=== PATIENT | male | born 1955 | race Caucasian/White ===

== ENCOUNTER 2019-03-09 09:34 | Day surgery (SDC) | payer OTHER ==
[2019-03-03 14:46] LABS: BASOPHILS % (AUTO) 0.8 % (0.0-2.0); HEMATOCRIT 45.7 % (42.0-52.0); LYMPHOCYTES % (AUTO) 26.6 % (20.0-45.0); MEAN CORPUSCULAR VOLUME 91 FL (80-99); MONOCYTES % (AUTO) 9.2 % (1.0-10.0); NEUTROPHILS % (AUTO) 61.3 % (45.0-75.0); PLATELET COUNT 346 K/UL (150-450); RED BLOOD COUNT 5.04 M/UL (4.70-6.10); RED CELL DISTRIBUTION WIDTH 10.6 % (11.6-14.8); WHITE BLOOD COUNT 5.2 K/UL (4.8-10.8)
[2019-03-03 14:53] LABS: APPEARANCE,URINE CLEAR; BILIRUBIN, URINE 2+ (NEGATIVE); GLUCOSE, URINE (UA) NEGATIVE (NEGATIVE); KETONES,URINE NEGATIVE (NEGATIVE); LEUKOCYTE ESTERASE ,URINE NEGATIVE (NEGATIVE); NITRITE,URINE NEGATIVE (NEGATIVE); PH,URINE 6.5 (4.5-8.0); PROTEIN,URINE NEGATIVE (NEGATIVE); UROBILINOGEN,URINE NORMAL MG/DL (0.0-1.0)
[2019-03-03 15:05] LABS: COLOR,URINE YELLOW
[2019-03-03 15:08] LABS: INR 0.9 (0.9-1.1)
[2019-03-03 15:21] LABS: ALANINE AMINOTRANSFERASE 38 U/L (12-78); ALBUMIN 4.8 G/DL (3.4-5.0); ALBUMIN/GLOBULIN RATIO 1.4 (1.0-2.7); ALKALINE PHOSPHATASE 63 U/L (46-116); ANION GAP 9 mmol/L (5-15); ASPARTATE AMINO TRANSFERASE 21 U/L (15-37); BILIRUBIN,TOTAL 0.6 MG/DL (0.2-1.0); BLOOD UREA NITROGEN 19 mg/dL (7-18); CALCIUM 9.4 MG/DL (8.5-10.1); CARBON DIOXIDE 30 MMOL/L (21-32); CHLORIDE 102 MMOL/L (98-107); CREATININE 1.1 MG/DL (0.55-1.30); PHOSPHORUS 3.8 MG/DL (2.5-4.9); POTASSIUM 3.7 MMOL/L (3.5-5.1); SODIUM 141 MMOL/L (136-145)
--- NOTE | 2019-03-03 15:56 | Diagnostic Imaging Report ---
Indication: Cough Technique: 2 views of the chest Comparison: None Findings: Lungs and pleural spaces are clear. The heart size is normal. There is a left shoulder prosthesis Impression: No acute process
[2019-03-09] VITALS (8 sets, daily range): BP systolic 137–174; BP diastolic 73–107
[~2019-03-09] VITALS: Ht 167.6 cm; Wt 77.1 kg
--- NOTE | 2019-03-09 07:07 | Pre-Procedure Note/Attestation ---
Pre-Procedure Note/Attestation Complete Prior to Procedure Planned Procedure: right Procedure Narrative: right shoulder scope, sad, mini sindhu, debridement vs repair of RTC Indications for Procedure Pre-Operative Diagnosis: rt shoulder rtc tear Attestation I attest that I discussed the nature of the procedure; its benefits; risks and complications; and alternatives (and the risks and benefits of such alternatives ), prior to the procedure, with the patient (or the patient's legal senior outside sales representative). I attest that, if there was a reasonable possibility of needing a blood transfusion, the patient (or the patient's legal senior outside sales representative) was given the [place] Department [employer] [facility] standardized written summary, pursuant to the [employer] Blood Safety Act ([place] Health and Safety Code # 1645, as amended). I attest that I re-evaluated the patient just prior to the surgery and that there has been no change in the patient's H&P, except as documented below: none Jordan Gonzalez MD Mar 09, 2019 07:07
--- NOTE | 2019-03-09 08:26 | Anethesia Preoperative Eval ---
Anesthesia Pre-op PMH/ROS General Date of Evaluation: Mar 09, 2019 Time of Evaluation: 10:36 Anesthesiologist: Maria Isabel ASA Score: ASA 3 Mallampati Score Class I : Soft palate, uvula, fauces, pillars visible Class II: Soft palate, uvula, fauces visible Class III: Soft palate, base of uvula visible Class IV: Only hard plate visible Mallampati Classification: Class II Surgeon: Carlos Diagnosis: R Shoulder Pain Surgical Procedure: R Shoulder Arthroscopy, RCR Anesthesia History: none Family History: no anesthesia problems Allergies: Coded Allergies: MORPHINE (Verified Allergy, Severe, headache, n/v, rash, dizziness, ) Medications: see eMAR Patient NPO?: Yes Past Medical History Cardiovascular: Reports: HTN, other - HL Gastrointestinal/Genitourinary: Reports: GERD Hematology/Immune: Reports: other - Skin Cancers PSxH Narrative: Varicocele SX, L THR, T TSR Anesthesia Pre-op Phys. Exam Physician Exam Vital Signs Date Time Temp Pulse Resp B/P (MAP) Pulse Ox O2 Delivery O2 Flow Rate FiO2 03/09/19 10:21 97.5 47 18 139/73 99 Room Air Constitutional: NAD Neurologic: CN 2-12 intact Cardiovascular: RRR Respiratory: CTA Gastrointestinal: S/NT/ND Airway Exam Mallampati Score: Class II MO: full ROM: full Teeth: intact Anesthesia Pre-op A/P Risk Assessment & Plan Assessment: ASA 3 Plan: GA, SED, Supraclavicular Block Status Change Before Surgery: No Pre-Antibiotics Dru Grams Ancef IV Given Within 1 Hr of Incision: Yes Time Given: 11:01 Linwood Nicolas MD Mar 09, 2019 08:26
[~2019-03-09 09:34] MED LIST: Atropine Sulfate 0.4mg/ml inj IVP PRN; CRESTOR10 M2 ORAL; Dexamethasone 4mg/ml vial ONE; DiphenhydrAMINE 50mg/ml Inj IVP PRN; HYDROCHLOROTH12.5 M2 ORAL; Ketorolac 30mg Inj IV PRN; LORazepam Inj 2mg/ml 1ml IV PRN; LR 1000ml 1,000 ML IVLG SCH; Labetalol 5mg/ml 20ml vial IV PRN; Lidocaine 1% MPF 10mg/ml 5ml ONE; Meperidine 50mg/ml Inj(FOR RIGORS ONLY) IVP PRN; Metoclopramide 10mg/2ml Inj IVP PRN; Midazolam 2mg/2ml Inj IVP PRN; OMEPRAZOLE40 M1 ORAL; Propofol 200mg/20ml IV ONE; Ropivacaine 5mg/ml Vial 30ml INJ ONE; Sodium Chloride 10ml vial INJ ONE; ceFAZolin 1gm IVPB IVPB ONE; celeBREX 200mg Cap **SURGERY PATIENTS ONLY ORAL ONE; fentaNYL 100 mcg/2 mL IV PRN; oxyCONTIN 20mg tab ORAL ONE
[2019-03-09] MEDS ORDERED: NS Irrig 4000ml IRRIG ONE ×2 (10:30→11:46)
[2019-03-09] MEDS ORDERED: LR 1000ml ONE (10:30)
[2019-03-09] MEDS ORDERED: celeBREX 200mg Cap **SURGERY PATIENTS ONLY ORAL ONE (10:33)
[2019-03-09] MEDS ORDERED: oxyCONTIN 20mg tab ORAL ONE (10:33)
[2019-03-09] MEDS ORDERED: HYDROcodone/Acetamin 5/325 tab ORAL PRN (11:15)
[2019-03-09] MEDS ORDERED: Tylenol #3 tab (300mg/30mg) ORAL PRN (11:15)
--- NOTE | 2019-03-09 11:34 | Immediate Post-Op Evaluation ---
Immediate Post-Op Evalulation Immediate Post-Op Evalulation Procedure: R Shoulder Arthroscopy Date of Evaluation: Mar 09, 2019 Time of Evaluation: 12:30 IV Fluids: 600 LR Blood Products: 0 Estimated Blood Loss: 15 Urinary Output: 0 Blood Pressure Systolic: 184 Blood Pressure Diastolic: 103 Pulse Rate: 87 Respiratory Rate: 16 O2 Sat by Pulse Oximetry: 98 Temperature (Fahrenheit): 97.1 Pain Score (1-10): 0 Nausea: No Vomiting: No Complications 0 Patient Status: awake, reacts, patent, none Hydration Status: adequate Dru grams Ancef IV Given Within 1 Hr of Incision: Yes Time Given: 11:01 Linwood Nicolas MD Mar 09, 2019 11:34
--- NOTE | 2019-03-09 11:35 | 48 Hour Post Anesthesia Eval ---
Post Anesthesia Evaluation Procedure: R Shoulder Arthroscopy Date of Evaluation: Mar 09, 2019 Time of Evaluation: 14:43 Blood Pressure Systolic: 162 0: 81 Pulse Rate: 62 Respiratory Rate: 18 Temperature (Fahrenheit): 98.2 O2 Sat by Pulse Oximetry: 99 Airway: patent Nausea: No Vomiting: No Pain Intensity: 1 Hydration Status: adequate Cardiopulmonary Status: Stable Mental Status/LOC: patient returned to baseline Follow-up Care/Observations: 0 Post-Anesthesia Complications: 0 Follow-up care needed: ready to discharge Linwood Nicolas MD Mar 09, 2019 11:35
[2019-03-09] MEDS ORDERED: ETODOLAC500 M1 PO (11:57)
[2019-03-09] MEDS ORDERED: DONEPEZIL HCL10 M2 ORAL (11:57)
[2019-03-09] MEDS ORDERED: GABAPENTIN600 MG ORAL (11:59)
[2019-03-09] MEDS ORDERED: CYCLOBENZAPRINE10 MG ORAL (12:00)
--- NOTE | 2019-03-09 12:25 | Brief Operative Note ---
Immediate Post Operative Note Operative Note Chief Complaint: right shoulder pain Pre-op Diagnosis: right shoulder impingement Procedure: rt shoulder scope, sad, richard sindhu Post-op Diagnosis: same as pre-op Findings: consistent w/pre-op dx studies Surgeon: md alicia Oil Spraying Machine Operator: osmin peter Anesthesiologist: md gemma Anesthesia: general Specimen: none Complications: none Condition: stable Fluids: ns Estimated Blood Loss: minimal Drains: none Implant(s) used?: No Dipika Peter Mar 09, 2019 12:25
[2019-03-09] MEDS ORDERED: D5 1/2NS 1,000 ML IV SCH (16:31)
[2019-03-09] MEDS ORDERED: HYDROmorphone 1mg/ml Carpuject SUBQ PRN (16:31)
--- NOTE | 2019-03-09 17:15 | Operative Note - Dictated ---
DATE OF OPERATION: 03/09/2019 PREOPERATIVE DIAGNOSES: 1. Right shoulder impingement. 2. Right shoulder partial-thickness tear rotator cuff. 3. 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 POSTOPERATIVE DIAGNOSES: 1. Right shoulder impingement and bursitis. 2. Right shoulder articular sided rotator cuff tear involving 10% of the rotator cuff. 3. 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 4. 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 5. Anterior and posterior degenerative labral tearing without detachment from glenoid. PROCEDURE: 1. Right shoulder arthroscopy and extensive intra-articular shaving. 2. Right shoulder glenohumeral chondroplasty. 3. Right shoulder debridement of the degenerative anterior posterior labral tearing. 4. Right shoulder subacromial bursoscopy, bursectomy, and subacromial decompression. 5. Right shoulder mini-Noemi procedure (resection of inferior 30% distended clavicle for coplaning). 6. Right shoulder arthroscopic debridement of the articular sided rotator cuff tear involving 20% of rotator cuff. SURGEON: Jordan Gonzalez M.D. BRUSH STAINER: Dipika Merchant PA-C. Chef [employer] was present during the actual operative portion of the case and was important and essential part of the operation. During the operation, the behavioral modification assistant held and operated the arthroscopic camera for visualization, assisted by manipulating the arm to help with visualization, and helped with essential parts of the repair process as necessary such as operating surgical instruments under surgeon supervision, suture management, and wound closures. ANESTHESIOLOGIST: Linwood Nicolas M.D. ANESTHESIA: General LMA anesthesia combined with interscalene block. ESTIMATED BLOOD LOSS: Minimal. COMPLICATIONS: None. SURGICAL INDICATION: Patient is a 63-year old male who sustained the above injury to his shoulder. The patient was treated non-operative initially, but this did not alleviate the patients symptoms. Therefore, after discussing all non-surgical and surgical options, and discussing all foreseeable risk and benefits of surgery, the patient opted for surgical treatment as described above. PATIENT POSITIONING: Patient was brought to the operating room table and was placed on the operating room table. All pressure points were well padded. General anesthesia was induced and patient was then placed in the lateral decubitus position. All pressure points were well padded again and an axillary roll was placed. Patient shoulder was then prepped and draped in the usual sterile fashion. Time out was performed and the appropriate preoperative antibiotic was given by the anesthesiologist. EXAMINATION OF SHOULDER UNDER ANESTHESIA: The shoulder was examined under anesthesia with all muscles well relaxed. The shoulder was forward flexed, abducted and was placed through full range of external and internal rotation. The anterior, posterior, and inferior stability of the shoulder was checked. The exam revealed no evidence of adhesive capsulitis and no evidence of instability. PORTAL PLACEMENT: The posterior portal was established 2 cm inferior and 1 cm medial to the edge of the posterior acromion. 1 cm skin incision was made using an eleven blade and using the blunt obturator, the cannula was gently placed through the capsule. The midglenoid portal was established just lateral to the coracoid process under direct visualization. Direction of the cannula was first established using a spinal needle, and subsequently, the cannula was placed through the capsule with a blunt obturator. DIAGNOSTIC ARTHROSCOPY: The biceps tendon was probed and pulled through the joint for visualization. It appeared normal. The biceps anchor was palpated with a probe and was visualized. There was some degenerative labral tearing superiorly, anteriorly and posteriorly. The posterior labrum and axillary recess was visualized. There was some degenerative labral tearing, but there were no loose fragments. There was diffuse glenoid chondral damage anteriorly, posteriorly and inferiorly involving grade 3 and grade 4 chondromalacia. There was some unstable chondral flaps. The articular surface of the rotator cuff was visualized and probed next. There was a 10% to 20% articular sided rotator cuff tear, but there was no full-thickness tear. The Humeral head articular surface was then visualized. There was diffuse chondral damage on the humeral head anteriorly, posteriorly, and inferiorly. Next the anterior labrum, middle gleno-humeral ligament, subscapularis tendon, and the anterior inferior gleno-humeral ligament were evaluated. There were some degenerative tears of the anterior labrum, however, the subscapularis and anterior, inferior glenohumeral ligaments were intact. At this point, the scope was moved to the midglenoid portal and the posterior structures including the posterior labrum, posterior capsule and posterior cuff were visualized. Again, there were some degenerative tears of the posterior labrum without detachment. The subscapularis recess was devoid of any loose bodies and the anterior capsule was well attached to the humeral neck. The middle and anterior inferior glenohumeral ligament was visualized. These structures were completely normal. OPERATIVE DEBRIDEMENTS AND REPAIR: Care was given to all partial thickness tears and frayed structures in the shoulder joint. The frayed rotator cuff and labrum was debrided using a shaver initially through the anterior portal and subsequently through the posterior portal to complete the debridement. This allowed for smooth debridement of all affected structures and all loose fragments were removed. DIAGNOSTIC BURSOSCOPY AND SUBACROMIAL DECOMPRESSION: The subacromion bursa was entered from the posterior portal. The anterior portal was established under the CA ligament using a switching stick. Subacromial arthroscopy was initiated. There was extensive bursitis and thickened and inflamed bursa tissue present. The CA ligament appeared to be scuffed and frayed. The shaver was placed through the anterior cannula and debridement of the hypertrophic bursa tissue was accomplished. Once visualization was adequate, a lateral portal was established using a blunt trochar in the mid portion of the acromion bone in the anterior-posterior direction and approximately 2 cm lateral to the lateral edge of the acromion. Using combination of shaver and electrocautery the CA ligament was released from the undersurface of the acromion and a complete bursectomy was accomplished. At this point, a subacromial decompression was performed using a tj initially taking off 5-8 mm of the anterolateral edge of the acromion from the lateral portal and viewing from the posterior portal. Then the lateral border of the undersurface of the acromion was decompressed to the same dept as the anterolateral edge. A posterior trough was then created in the acromion in line with the posterior edge of the clavicle. At this point, the scope was placed in the lateral portal and the subacromial decompression was performed from the posterior portal decompressing the undersurface of the acromion to dept of 5-8 mm. The decompression was performed anterior to the previously marked trough all the way medially to the level of the AC joint. At all times, care was given not to take off too much bone in order to avoid risk of fracture of the acromion. An excellent subacromial decompression was performed in this fashion. At this point, the bursal side of the rotator cuff was examined. All the bursa over the rotator cuff was removed and the rotator cuff was examined with a probe. The arm was placed into external rotation, neutral, and then internal rotation and there was no evidence of tear of the rotator cuff. The scope was then placed in the posterior portal and the subacromial decompression was rechecked to assure there is no area of bone spur that would be still impinging onto the rotator cuff. EVALUATION OF DISTAL CLAVICLE AND DISTAL CLAVICLE RESECTION: Care was given to the distal end of the clavicle. Using electrocautery and archana, the distal end of the bursa and soft tissue around the distal end of the clavicle was debrided and cleaned. Care was given not to inflict excessive trauma to the ligaments of the AC joint. The distal end of the clavicle appeared to have an inferior osteophyte extending down well bellow the level of the acromion at the level of the AC joint. This appeared to be impinging onto the supraspinatus muscle belly and the musculotendinous junction of the rotator cuff. A mini-Noemi procedure was performed by using a tj to resect the inferior 30% of the distal end of the clavicle. This decompression allowed space for the inferior structures to slide without impingement. This co-plained the inferior edge of the distal clavicle with the inferior edge of the acromion. CONDITION AT DISCHARGE FROM OPERATING ROOM: The skin was re-approximated and sterile dressing and sling were applied. All lap counts and instrument counts were correct. Patient tolerated the procedure well without complications and was taken to the recovery room in stable conditions. Jordan Gonzalez M.D. DR: CHRISTIANO JOB#: [id number] CC:
--- NOTE | 2019-03-10 15:21 | Cardiology Report ---
APPROVED REPORT EXAM: Two-dimensional and M-mode echocardiogram with Doppler and color Doppler. INDICATION Preop Evaluation M-Mode DIMENSIONS IVSd1.1 (0.7-1.1cm)Left Atrium (MM)4.1 (1.6-4.0cm) LVDd4.6 (3.5-5.6cm)Aortic Root2.5 (2.0-3.7cm) PWd1.0 (0.7-1.1cm)Aortic Cusp Exc.1.7 (1.5-2.0cm) LVDs3.0 (2.5-4.0cm) PWs1.6 cm Normal left ventricular chamber size, systolic function and wall motion. Left ventricular ejection fraction estimated to be 60-65 %. No evidence of left ventricular hypertrophy. No evidence of pericardial effusion. All other cardiac chamber sizes are within normal limits. Focal aortic valve sclerosis with adequate cusp excursion. Thickened mitral valve leaflets with normal excursion. Mitral annulus and aortic root calcification. Pulmonic valve not well visualized. Normal tricuspid valve structure. IVC at normal size with physiologic collapse. A color flow and spectral Doppler study was performed and revealed: Trace mitral regurgitation. Mitral diastolic velocities suggest reduced left ventricular relaxation c/w mild LV diastolic dysfunction (Grade I ). Trace tricuspid regurgitation. Tricuspid systolic velocities suggests peak right ventricular systolic pressure of 11 mmHg. Mild pulmonic regurgitation present.
--- NOTE | 2019-03-11 12:43 | Cardiology Report ---
APPROVED REPORT EKG Measurement Heart [id number] Sinus bradycardia Otherwise normal ECG
== END 2019-03-09 14:45 | disposition home or self-care (01) ==
LOC: SUR 09:34
DX: M75.41 Impingement syndrome of right shoulder (principal); M71.9 Bursopathy, unspecified; M75.111 Incomplete rotator cuff tear or rupture of right shoulder, not specified as traumatic; M19.011 Primary osteoarthritis, right shoulder; S43.431A Superior glenoid labrum lesion of right shoulder, initial encounter; X58.XXXA Exposure to other specified factors, initial encounter; Y92.9 Unspecified place or not applicable; I10 Essential (primary) hypertension; M19.90 Unspecified osteoarthritis, unspecified site; Z90.89 Acquired absence of other organs; K21.9 Gastro-esophageal reflux disease without esophagitis; Z85.828 Personal history of other malignant neoplasm of skin; Z88.6 Allergy status to analgesic agent
CPT/HCPCS: 29823; 29824; 36415; 71046; 80053; 81001; 83735; 84100; 84443; 85025; 85610; 85730; 87086; 93005; 93306; J0690; J1100; J2250; J2405; J2704; J2795; J7120; 94003; 94150